=== PATIENT | female | born 1960 | race Caucasian/White ===

== ENCOUNTER 2017-11-19 14:55 | Emergency (ER) | payer OTHER, BC ==
[~2017-11-19] VITALS: Ht 162.6 cm; Wt 48.0 kg
[2017-11-19] MEDS ORDERED: MOTRIN400 MG PO (16:52)
[2017-11-19] MEDS ORDERED: CYCLOBENZAPRINE5 MG PO (16:52)
[2017-11-19 16:55] VITALS: BP 118/77
== END 2017-11-19 16:59 | disposition home or self-care (01) | DRG 563 ==
LOC: ED 14:55
DX: S39.012A Strain of muscle, fascia and tendon of lower back, initial encounter (principal); M25.512 Pain in left shoulder; M25.511 Pain in right shoulder; F17.200 Nicotine dependence, unspecified, uncomplicated; X58.XXXA Exposure to other specified factors, initial encounter